=== PATIENT | male | born 1950 | race Caucasian/White ===

== ENCOUNTER → 2019-01-08 09:49 | Outpatient (CLI) | payer MEDICARE, MEDICAID, SELFPAY ==
[2019-01-08] VITALS (12 sets, daily range): BP systolic 110–146; BP diastolic 38–56; PULSE 69–80; RESP 19–71; TEMP 36.6–37; O2SAT 93–99; BMI 16.2
[2019-01-08 11:41] LABS: INR 0.95 (0.9-1.1); Prothrombin Time 9.9 seconds (9.4-11.8)
[2019-01-08 16:11] LABS: Hematocrit 30.5 % (42.0-52.0); Hemoglobin 9.9 g/dL (14.1-18.0)
[2019-01-10 11:38] LABS: Iron 36 ug/dL (38-169); UIBC 201 ug/dL (111-343)
[2019-01-10 15:24] LABS: Iron Saturation 15 % (15-55)
[2019-01-11 07:25] LABS: Vitamin B12 636 pg/mL (232-1245)
== END ==
PROVIDERS: Nurse Practitioner Family; PCP Internal Medicine Adolescent Medicine; Visit Provider Family Medicine
DX: D64.9 Anemia, unspecified (principal); Z51.81 Encounter for therapeutic drug level monitoring
CPT/HCPCS: 36415; 36430; 82607; 83540; 83550; 85014; 85018; 85610; 85730; 86850; P9016